=== PATIENT | female | born 1985 | race Caucasian/White ===

== ENCOUNTER 2018-12-20 21:00 | Emergency (ER) | payer OTHER, BC ==
--- NOTE | 2018-12-20 21:32 | EDM.PDOC ---
ED HPI GENERAL MEDICAL PROBLEM - General Chief Complaint: General Stated Complaint: increased blood pressure and neck pain Time Seen by Provider: 12/20/18 21:00 Source of Information: Reports: Patient History Limitations: Reports: No Limitations - History of Present Illness INITIAL COMMENTS - FREE TEXT/NARRATIVE: Patient presents to ER with complaints of neck pain, headache and concerns about blood pressure. Was on ambulance run tonight, lifted legs in helping with assist of patient and felt "zinger in neck". Has had a muscle spasm in neck much of day, states feels was from sleeping in the recliner last night. States occasionally does due to . Is 32 weeks gestation, did see her doctor yesterday and was doing well. Denies any abdominal cramping, vaginal bleeding or chest discomfort. As she was having a headache, returned back to hospital after run and checked her blood pressure and was high at 176/84. She states her blood pressure has been high at times as well as was during her first but has been stable, not requiring treatment yet at this time. Has been on lifting restrictions much of Onset: Today, Sudden Duration: Hour(s): Location: Reports: Neck Quality: Reports: Burning Severity: Mild Associated Symptoms: Reports: Headaches. Denies: Confusion, Chest Pain, Fever/ Chills, Nausea/Vomiting, Weakness Headache Pain Score (Numeric/FACES): 3 Past Medical History - Past Health History Medical/Surgical History: Denies Medical/Surgical History Social & Family History - Tobacco Use Smoking Status *Q: Never Smoker ED ROS GENERAL - Review of Systems Review Of Systems: See Below Constitutional: Denies: Fever, Chills, Malaise, Weakness HEENT: Denies: Ear Discharge, Sinus Problem, Vision Change Respiratory: Denies: Shortness of Breath, Cough Cardiovascular: Reports: No Symptoms Endocrine: Reports: Fatigue GI/Abdominal: Denies: Abdominal Pain, Nausea, Vomiting : Reports: No Symptoms Musculoskeletal: Reports: Neck Pain Skin: Reports: No Symptoms Neurological: Reports: Headache Psychiatric: Reports: No Symptoms ED EXAM, GENERAL - Physical Exam Exam: See Below Exam Limited By: No Limitations General Appearance: Alert, WD/WN, No Apparent Distress Eye Exam: Bilateral Eye: PERRL Ears: Normal External Exam, Normal TMs Nose: Normal Inspection, Normal Mucosa, No Blood Throat/Mouth: Normal Inspection, Normal Oropharynx Head: Normocephalic Neck: Normal Inspection, Supple, Tender Lateral (tender to right occipital base , muscle spasm noted) Respiratory/Chest: No Respiratory Distress, Lungs Clear, Normal Breath Sounds Cardiovascular: Regular Rate, Rhythm GI/Abdominal: Normal Bowel Sounds, Soft, Other (gravid. heart tones 148) Extremities: Normal Inspection, No Pedal Edema Neurological: Alert, Oriented Skin Exam: Warm Course - Vital Signs Last Recorded V/S: Last Vital Signs Temp 98.7 F 12/20/18 21:05 Pulse 112 H 12/20/18 21:05 Resp 20 12/20/18 21:05 BP 150/89 H 12/20/18 21:05 Pulse Ox 97 12/20/18 21:05 - Re-Assessments/Exams Free Text/Narrative Re-Assessment/Exam: 12/20 Blood pressure monitored closely. Did improve to 140/82. Will have patient contact her PRESCRIPTION BENEFIT SPECIALIST in am. Will rest tonight. Not return back to work until cleared by OB. Take tylenol for discomfort. Departure - Departure Time of Disposition: 21:29 Disposition: Home, Self-Care 01 Condition: Fair Clinical Impression: Hypertension, - Discharge Information *PRESCRIPTION DRUG MONITORING PROGRAM REVIEWED*: No *COPY OF PRESCRIPTION DRUG MONITORING REPORT IN PATIENT ANGELICA: No Referrals: PCP,None [Primary Care Provider] - Forms: ED Department Discharge Additional Instructions: 1. Rest 2. Push fluids 3. No work until cleared by [facility]EFIT SPECIALIST 4. Report blood pressure readings to your OB in am 5. Return to ER if develops any further symptoms
== END 2018-12-20 22:00 | disposition home or self-care (01) ==
LOC: CC.ED 21:00
DX: O13.3 Gestational [pregnancy-induced] hypertension without significant proteinuria, third trimester (principal); O99.89 Other specified diseases and conditions complicating pregnancy, childbirth and the puerperium; M62.838 Other muscle spasm; O09.523 Supervision of elderly multigravida, third trimester; Z3A.32 32 weeks gestation of pregnancy
CPT/HCPCS: 99282

== ENCOUNTER 2021-10-05 16:33 | Emergency (ER) | payer BC ==
[2021-10-05] MEDS ORDERED: Sodium Chloride 0.9% 500 ML IV SCH (17:15)
[2021-10-05] MEDS ORDERED: NIFEdipine 30 MG Tab.ER PO ONE (17:30)
== END 2021-10-05 18:10 | disposition home or self-care (01) ==
LOC: CC.ED 16:33
DX: I10 Essential (primary) hypertension (principal); R51.9 Headache, unspecified; Z88.8 Allergy status to other drugs, medicaments and biological substances; Z79.899 Other long term (current) drug therapy
CPT/HCPCS: 36415; 80053; 81001; 85025; 96360; 99283; 99284; A9270; J7040